=== PATIENT | male | born 1965 ===

== ENCOUNTER 2022-05-05 13:47 | Emergency (ER) | payer OTHER ==
[~2022-05-05] VITALS: Ht 165.1 cm; Wt 81.0 kg
[2022-05-05] MEDS ORDERED: PredniSONE 20 MG TABLET PO ONE (15:00)
[2022-05-05] MEDS ORDERED: IPRATROPIUM BROMIDE 0.5 MG/2.5 ML NEB SOLUTION NEB ONE (15:00)
[2022-05-05] MEDS ORDERED: ALBUTEROL SULFATE 2.5 MG/0.5 ML NEB SOLUTION NEB ONE (15:00)
[2022-05-05 15:42] LABS: COVID AG,FIA SOURCE NASAL SWAB
[2022-05-05 16:00] LABS: INFLUENZA TYPE A NEGATIVE FOR TYPE A (NEGATIVE); INFLUENZA TYPE B NEGATIVE FOR TYPE B (NEGATIVE)
[2022-05-05 16:40] VITALS: BP 113/70
[2022-05-05] MEDS ORDERED: AZIT250T9 PO (16:59)
[2022-05-05] MEDS ORDERED: ALBU90AE IH (16:59)
[2022-05-05] MEDS ORDERED: AZITHROMYCIN 500 MG TABLET PO ONE (17:00)
== END 2022-05-05 17:17 | disposition home or self-care (01) ==
LOC: EMS 13:51
DX: J18.9 Pneumonia, unspecified organism (principal); E78.00 Pure hypercholesterolemia, unspecified; I10 Essential (primary) hypertension; F17.210 Nicotine dependence, cigarettes, uncomplicated; Z20.822 Contact with and (suspected) exposure to COVID-19
CPT/HCPCS: 99285; 71046; 87426; 87804; 94640; J7512; Q9967; J7613